=== PATIENT | male | born 1935 | race Caucasian/White ===

== ENCOUNTER → 2017-07-27 | Outpatient (CLI) | payer MEDICARE ==
[~2017-07-27] MED LIST: OMNIPAQUE 350 MG/ML, 100ML BOTTLE ONE
== END | disposition home or self-care (01) ==
LOC: RAD 07-19 15:26
PROVIDERS: ATTEND Specialist
DX: I65.23 Occlusion and stenosis of bilateral carotid arteries (principal); I63.8 Other cerebral infarction; G40.89 Other seizures; R27.0 Ataxia, unspecified
CPT/HCPCS: 0042T; 36415; 70496; 82565; Q9967

== ENCOUNTER 2018-06-24 10:24 | Inpatient (IN) | payer MEDICARE ==
[~2018-06-24] VITALS: Ht 182.9 cm; Wt 86.8 kg
[~2018-06-24 10:24] MED LIST changes: -OMNIPAQUE 350 MG/ML, 100ML BOTTLE ONE; +UBID100C24 PO
[2018-06-24] MEDS ORDERED: FENTANYL PF 250 MCG/5ML ONE (10:53)
[2018-06-24] MEDS ORDERED: PROPOFOL 10 MG/ML, 20ML ONE (10:54)
[2018-06-24] MEDS ORDERED: ROCURONIUM 10MG/ML,5ML ONE (10:54)
[2018-06-24] MEDS ORDERED: NEOSTIGMINE 1 MG/ML, 10ML ONE (10:55)
[2018-06-24] MEDS ORDERED: GLYCOPYRROLATE 0.4 MG/2 ML, 2ML ONE (10:55)
[2018-06-24] MEDS ORDERED: WATER-INJECTION,STERILE 10 ML IV ONE ×2 (10:56)
[2018-06-24] MEDS ORDERED: CEFAZOLIN 1,000 MG ONE ×2 (10:56)
[2018-06-24] MEDS ORDERED: EPHEDRINE 50 MG/ML, 1ML ONE (10:58)
[2018-06-24] MEDS ORDERED: LACTATED RINGERS 1,000 ML IV SCH (11:02)
[2018-06-24 11:14] VITALS: BP 143/79
[2018-06-24] MEDS ORDERED: HEPARIN 5,000 UNITS/ML, 1ML ONE (12:20)
[2018-06-24] MEDS ORDERED: THROMBIN 20,000 UNIT VIAL TP ONE (12:20)
[2018-06-24] MEDS ORDERED: PAPAVERINE 30 MG/ML, 2ML ONE (12:20)
[2018-06-24] MEDS ORDERED: BUPIVACAINE/PF-EPI 0.5% 1:200K ONE (12:20)
[2018-06-24] MEDS ORDERED: PROTAMINE SULFATE 10 MG/ML, 5ML ONE (12:20)
[2018-06-24] MEDS ORDERED: LIDOCAINE/PF 0.5% ,50ML ONE (12:29)
[2018-06-24] MEDS ORDERED: LABETALOL 5MG/ML, 20ML IV PRN (12:30)
[2018-06-24] MEDS ORDERED: HYDROmorphone 1 MG/ML, 1ML IV PRN (12:30)
[2018-06-24] MEDS ORDERED: MEPERIDINE/PF 25MG/0.5ML IVPush PRN (12:30)
[2018-06-24] MEDS ORDERED: OXYcodone 5 MG/5 ML ORAL.SOL UDC PO PRN (12:30)
[2018-06-24] MEDS ORDERED: FENTANYL PF 100 MCG/2ML IV PRN (12:30)
[2018-06-24] MEDS ORDERED: MORPHINE SULFATE 4 MG/ML, 1ML IVPush PRN (12:30)
[2018-06-24] MEDS ORDERED: ONDANSETRON ODT 8 MG PO PRN (12:30)
[2018-06-24] MEDS ORDERED: PROMETHAZINE 25 MG SUPP PR PRN (12:30)
[2018-06-24] MEDS ORDERED: PROMETHAZINE 12.5 MG SUPP PR PRN (12:30)
[2018-06-24] MEDS ORDERED: ONDANSETRON 2MG/ML, 2ML IV PRN ×2 (12:30→18:00)
[2018-06-24] MEDS ORDERED: PHENYLEPHRINE 10 MG/ML ONE (12:39)
[2018-06-24] MEDS ORDERED: PROMETHAZINE 25 MG/ML, 1ML ONE (14:50)
[2018-06-24] MEDS ORDERED: ASPIRIN 81 MG TABLET EC PO ONE (15:00)
[2018-06-24] MEDS: PROMETHAZINE 25 MG/ML, 1ML IV PRN ×2 (15:03→15:15)
[2018-06-24] MEDS: hydrALAzine 20 MG/ML, 1ML IV PRN ×2 (15:18→15:43)
[2018-06-24] MEDS ORDERED: GLYCOPYRROLATE 0.2MG/1ML, 5ML IVPush ONE (15:30)
[2018-06-24] MEDS ORDERED: OXYcodone 5 MG/5 ML ORAL.SOL UDC ONE (15:55)
[2018-06-24] MEDS ORDERED: LABETALOL 5MG/ML, 20ML IVPush PRN ×2 (18:00→19:00)
[2018-06-24] MEDS ORDERED: hydrALAzine 20 MG/ML, 1ML IV PRN ×2 (18:00→18:46)
[2018-06-24] MEDS ORDERED: MORPHINE SULFATE 4 MG/ML, 1ML IV PRN (18:00)
[2018-06-24] MEDS ORDERED: HYDROcodone/APAP 5/325 TABLET PO PRN (18:00)
[2018-06-24] MEDS ORDERED: ONDANSETRON ODT 4 MG ONE (18:28)
[2018-06-24] MEDS: ASPIRIN 81 MG TABLET EC PO SCH (18:36)
[2018-06-24] MEDS: METOPROLOL TARTRATE 25 MG TABLET PO SCH (18:36)
[2018-06-24] MEDS: ACETAMINOPHEN 325 MG TABLET PO PRN (18:36)
[2018-06-24] MEDS ORDERED: METOCLOPRAMIDE 5 MG/ML, 2ML IVPush PRN (19:00)
[2018-06-24] MEDS ORDERED: ONDANSETRON ODT 4 MG PO PRN (19:00)
[2018-06-24 19:20] VITALS: BP 157/65
[2018-06-24 20:10] VITALS: BP 113/57
[2018-06-24] MEDS ORDERED: CEFAZOLIN PMX 1GM/50ML 0 ML ONE (20:21)
[2018-06-24] MEDS: SODIUM CHLORIDE FLUSH 10ML SYR IVF SCH (20:24)
[2018-06-24] MEDS: POTASSIUM CHLORIDE 20 MEQ in LACTATED RINGERS 1,000 ML IV SCH (20:24)
[2018-06-24] MEDS ORDERED: CEFAZOLIN 2,000 MG in SODIUM CHLORIDE 0.9% 50 ML IVPB SCH (20:30)
[2018-06-24] MEDS ORDERED: SIMVASTATIN 20 MG TABLET PO SCH (21:00)
[2018-06-24] MEDS: CEFAZOLIN 2,000 MG in SODIUM CHLORIDE 0.9% 50 ML IVPB SCH (21:14)
[2018-06-25 00:10] VITALS: BP 125/65
[2018-06-25] MEDS: ACETAMINOPHEN 325 MG TABLET PO PRN (03:27)
[2018-06-25 03:34] VITALS: BP 130/67
[2018-06-25] MEDS: POTASSIUM CHLORIDE 20 MEQ in LACTATED RINGERS 1,000 ML IV SCH (04:06)
[2018-06-25] MEDS: CEFAZOLIN 2,000 MG in SODIUM CHLORIDE 0.9% 50 ML IVPB SCH (05:15)
[2018-06-25] MEDS: METOPROLOL TARTRATE 25 MG TABLET PO SCH (05:16)
[2018-06-25] MEDS: SODIUM CHLORIDE FLUSH 10ML SYR IVF SCH (08:24)
[2018-06-25] MEDS: ASPIRIN 81 MG TABLET EC PO SCH (08:24)
[2018-06-25 10:05] VITALS: BP 122/57
[2018-06-25] MEDS ORDERED: ASPI-621 PO (10:11)
[2018-06-25] MEDS ORDERED: SIMV20TA3 PO (10:12)
[2018-06-25] MEDS ORDERED: METO25TA35 PO (10:14)
== END 2018-06-25 13:30 | disposition home or self-care (01) | DRG 39 ==
LOC: ORIP 10:24 → EDSTATUS 12:30 → 4NOR 17:18 → DCLOUNGE 06-25 13:02
PROVIDERS: ADMIT Surgery; ATTEND Surgery
PROC: 03CL0ZZ Extirpation of Matter from Left Internal Carotid Artery, Open Approach (ICD-10-PCS; 2018-06-24)
PROC: 03UJ0KZ Supplement Left Common Carotid Artery with Nonautologous Tissue Substitute, Open Approach (ICD-10-PCS; 2018-06-24)
PROC: 03UL0KZ Supplement Left Internal Carotid Artery with Nonautologous Tissue Substitute, Open Approach (ICD-10-PCS; 2018-06-24)
PROC: 03CN0ZZ Extirpation of Matter from Left External Carotid Artery, Open Approach (ICD-10-PCS; 2018-06-24)
PROC: 03CJ0ZZ Extirpation of Matter from Left Common Carotid Artery, Open Approach (ICD-10-PCS; principal; 2018-06-24 12:30)
DX: I65.22 Occlusion and stenosis of left carotid artery (principal); Z88.8 Allergy status to other drugs, medicaments and biological substances
CPT/HCPCS: 36415; 86850; 86900; C1729; J0690; J1644; J2001; J2550; J2704; J2710; J2720; J3010; J3480; Q0162; C1768; J0360; J2370; J2440; J7120

== ENCOUNTER → 2018-07-25 | Outpatient (CLI) | payer MEDICARE ==
[~2018-07-25] MED LIST changes: +ASPI-621 PO; +METO25TA35 PO; +SIMV20TA3 PO
== END | disposition home or self-care (01) ==
LOC: RAD 16:51
PROVIDERS: ATTEND Nurse Practitioner Psychiatric/Mental Health
DX: I63.8 Other cerebral infarction (principal); R42 Dizziness and giddiness; I74.2 Embolism and thrombosis of arteries of the upper extremities
CPT/HCPCS: 0042T

== ENCOUNTER 2021-03-26 15:29 | Emergency (ER) | payer MEDICARE ==
[~2021-03-26] VITALS: Ht 182.9 cm; Wt 82.3 kg
[~2021-03-26 15:29] MED LIST changes: -ASPI-621 PO; +ASPI81TA45 PO; +SIMV20TA19 PO; -SIMV20TA3 PO
[2021-03-26 16:19] LABS: BASOPHILS % (AUTO) 0 % (0-1); EOSINOPHILS % (AUTO) 2 % (1-7); LYMPHOCYTES % (AUTO) 14 % (22-44); MEAN CORPUSCULAR HEMOGLOBIN 30.6 pg (27.5-34.5); MEAN CORPUSCULAR HGB CONC 33.8 g/dL (33.2-36.2); MEAN PLATELET VOLUME 8.6 fL (7.4-10.4); MONOCYTES % (AUTO) 8 % (2-9); NEUTROPHILS % (AUTO) 76 % (42-75); PLATELET COUNT 175 x10^3/uL (130-400); RED BLOOD COUNT 4.66 x10^6/uL (4.38-5.82); RED CELL DISTRIBUTION WIDTH 13.2 % (9.4-14.8)
[2021-03-26 16:27] LABS: MD NO
[2021-03-26 16:29] VITALS: BP 152/78
[2021-03-26 16:34] LABS: ALANINE AMINOTRANSFERASE 27 U/L (12-78); ALBUMIN 3.2 g/dL (3.4-5.0); ANION GAP 7 mmol/L (5-15); CALCIUM 8.2 mg/dL (8.5-10.1); CHLORIDE 110 mmol/L (98-107); CREATININE 1.09 mg/dL (0.7-1.3)
[2021-03-26 16:38] LABS: ALKALINE PHOSPHATASE 88 U/L (45-117); BILIRUBIN,TOTAL 0.5 mg/dL (0.2-1.0); TOTAL PROTEIN 6.1 g/dL (6.4-8.2); TROPONIN I < 0.015 ng/mL (0.000-0.045)
== END 2021-03-26 18:19 | disposition home or self-care (01) ==
LOC: ED 16:11
DX: R53.1 Weakness (principal); R07.9 Chest pain, unspecified
CPT/HCPCS: 36415; 71045; 80053; 84484; 85025; 93005; 99285